=== PATIENT | male | born 1960 | race Caucasian/White ===

== ENCOUNTER → 2016-05-31 | Outpatient (CLI) | payer OTHER ==
[~2016-05-31] MED LIST: IBUPROFEN PO; NABUMETONE PO; SKELAXIN PO
--- NOTE | ~2016-05-31 | CR63 ---
[facility] A Service of [facility] RADIOLOGY TEXT RESULTS PATIENT: MIGDALIA MOREL LOCATION: [facility] : 60 UNIT #: [id number] AGE: [address]: Stephen Hong MD SEX: M ORDER DR: [id number] [facility] [address]. [place], [place] [address] [id number] O MR#: [id number] Acc #: [id number] NAME: MIGDALIA MOREL : 1960 SEX: M STUDY DATE/TIME: 05/31/2016 11:40 UNIT: [facility] ROOM: STUDY DESCRIPTION: CR Chest 2 View Attending Physician: Stephen Hong M.D. Referring Physician: Stephen Hong M.D. Ordering Physician: Stephen Hong M.D. Primary Care Physician: Mannie Calles M.D. MEDICAL IMAGING REPORT This report is preliminary unless electronic signature is present EXAM 2-view chest INDICATIONS Preoperative evaluation for umbilical hernia repair. Preoperative assessment of pulmonary function. FINDINGS PA and lateral view of the chest compared to 07/13/2010. Heart and mediastinal contours normal. Lungs are clear. No pleural effusion. IMPRESSION Negative chest radiograph. Dictated by... Rishabh Garcia M.D. THIS IS AN ELECTRONICALLY VERIFIED REPORT Rishabh Garcia M.D. at 05/31/2016 4:31 PM SAUL/audrey TD: 05/31/2016 13:51 JOB #: [id number] MEDICAL IMAGING REPORT Page 1 of 1 COPY
--- NOTE | ~2016-05-31 | EKG ---
PATIENT: MIGDALIA MOREL UNIT #: [id number] Ventricular Rate: 56 BPM Atrial Rate: 56 BPM P-R Interval: 154 ms QRS Duration: 100 ms Q-T Interval: 434 ms QTC Calculation(Bezet): 418 ms P Cascade: 25 degrees Calculated R Cascade: -26 degrees Calculated T Cascade: 2 degrees Diagnosis Line: Sinus bradycardia Diagnosis Line: Minimal voltage criteria for LVH, may be normal Diagnosis Line: variant Diagnosis Line: Borderline ECG Diagnosis Line: When compared with ECG of 13-JUL-2010 18:37, Diagnosis Line: T wave inversion now evident in Inferior leads Diagnosis Line: Confirmed by SYEDA LAZO MD ([id number]) on 06/01/2016 Diagnosis Line: 4:52:15 AM INTERPRETING MD: CLIFTON MIXON
[2016-05-31 11:32] LABS: HEMATOCRIT 44.1 % (38.0-50.0); HEMOGLOBIN 14.6 gm/dL (13.0-16.0); MEAN CELL VOLUME 87.7 FL (83-96); MEAN CORPUSCULAR HGB CONC 33.1 g/dL (30-36); RED BLOOD COUNT 5.02 X10e (3.90-5.60); RED CELL DISTRIBUTION WIDTH 13.1 % (11.0-15.5); WHITE BLOOD COUNT 9.6 X10e3 (4.0-10.5)
[2016-05-31 11:50] LABS: PARTIAL THROMBOPLASTIN TIME 26.8 SECONDS (23.5-31.3); PROTHROMBIN TIME (PATIENT) 10.5 SECONDS (9.6-11.5)
[2016-05-31 12:04] LABS: ALBUMIN SERUM 4.2 g/dL (3.5-5.0); BILIRUBIN,TOTAL 0.7 mg/dL (0.2-2.0); BUN/CREATININE RATIO 25.71; CALCIUM SERUM 9.4 mg/dL (8.4-10.2); CREATININE SERUM 0.7 mg/dL (0.6-1.4); GLOM FILT RATE Estimated 106.3 mL/min (>60); POTASSIUM 4.7 mmol/L (3.5-5.1); PROTEIN TOTAL SERUM 7.2 g/dL (6.0-8.3)
== END | disposition home or self-care (01) ==
LOC: CLAB 10:30
PROVIDERS: Surgery
DX: K42.9 Umbilical hernia without obstruction or gangrene (principal)
CPT/HCPCS: 36415; 71020; 80053; 85027; 85610; 85730; 93005